=== PATIENT | female | born 1940 | race Caucasian/White ===

== ENCOUNTER 2024-07-25 22:55 | Observation (INO) | payer OTHER ==
[2024-07-25] MEDS: METOCLOPRAMIDE HCL INJECTION 10 MG/2 ML VIAL IVPB ONE (23:46)
[2024-07-25 23:50] LABS: BASO % 0.3 % (0-2.0); HEMATOCRIT 39.8 % (32.4-45.2); HEMOGLOBIN 13.1 GM/dL (10.7-15.3); MCH 29.8 pg (25.7-33.7); MEAN CELL VOLUME 90.2 fl (80-96); MEAN PLT VOLUME 7.8 fl (7.5-11.1); MONO % 4.4 % (3.8-10.2); NEUT % 87.3 % (42.8-82.8); PLATELET COUNT 298 10^3/uL (134-434); RBC 4.42 M/mm3 (3.60-5.2); RDW 15.8 % (11.6-15.6); WHITE BLOOD COUNT 12.5 K/mm3 (4.0-10.0)
[2024-07-26] LABS: POTASSIUM 4.4 mmol/L (3.5-5.1)
[2024-07-26 00:02] LABS: ALBUMIN 3.8 g/dl (3.4-5.0); CALCIUM 9.1 mg/dL (8.5-10.1)
[2024-07-26 00:03] LABS: BLOOD UREA NITROGEN 21.1 mg/dL (7-18); MAGNESIUM 2.1 mg/dL (1.8-2.4)
[2024-07-26 00:06] LABS: CREATININE 1.1 mg/dL (0.55-1.3)
[2024-07-26 00:07] LABS: BILIRUBIN,TOTAL 0.4 mg/dL (0.2-1); TOT PROT 8.2 g/dl (6.4-8.2)
[2024-07-26] MEDS ORDERED: ONDANSETRON 4 MG/2 ML VIAL ONE (01:26)
[2024-07-26] MEDS ORDERED: INSULIN ASPART SLIDING SCALE (NOVOLOG) 1 VIAL SQ ONE ×3 (01:31→08:32)
[2024-07-26] MEDS: SODIUM CHLORIDE 0.9% 500 ML INFUS.BAG IV ONE (01:40)
[2024-07-26] MEDS: INSULIN (NOVOLOG) ASPART 100 UNITS/ML 10ML VIAL SQ ONE (01:40)
[2024-07-26] MEDS: ONDANSETRON 4 MG/2 ML VIAL IVPUSH ONE (01:41)
[2024-07-26] MEDS: SODIUM CHLORIDE FOR INHALATION 3 ML VIAL.NEB IH ONE (01:53)
[2024-07-26] MEDS ORDERED: MECLIZINE HCL 12.5 MG TABLET ONE (04:04)
[2024-07-26] MEDS: MECLIZINE HCL 12.5 MG TABLET PO ONE (04:07)
[2024-07-26] MEDS ORDERED: KCL 10 MEQ IVPB 10 MEQ/100 ML INFUS.BAG IVPB SCH (05:45)
[2024-07-26] MEDS ORDERED: LISINOPRIL 20 MG TABLET ONE (05:51)
[2024-07-26] MEDS: LISINOPRIL 20 MG TABLET PO ONE (06:00)
[2024-07-26] MEDS: MECLIZINE HCL 12.5 MG TABLET PO SCH (06:13)
[2024-07-26] MEDS: SODIUM CHLORIDE 1,000 ML IV SCH (06:50)
[2024-07-26 07:21] LABS: BASO % 0.4 % (0-2.0); HEMATOCRIT 39.2 % (32.4-45.2); HEMOGLOBIN 13.4 GM/dL (10.7-15.3); LYMPH % 8.3 % (8-40); MCH 30.9 pg (25.7-33.7); MCHC 34.1 g/dl (32.0-36.0); MEAN CELL VOLUME 90.6 fl (80-96); MEAN PLT VOLUME 8.5 fl (7.5-11.1); MONO % 4.5 % (3.8-10.2); NEUT % 86.8 % (42.8-82.8); PLATELET COUNT 223 10^3/uL (134-434); RBC 4.32 M/mm3 (3.60-5.2); RDW 15.5 % (11.6-15.6); WHITE BLOOD COUNT 11.5 K/mm3 (4.0-10.0)
[2024-07-26 07:43] LABS: POTASSIUM 4.5 mmol/L (3.5-5.1)
[2024-07-26 07:45] LABS: CALCIUM 8.4 mg/dL (8.5-10.1)
[2024-07-26 07:46] LABS: ALBUMIN 3.5 g/dl (3.4-5.0); MAGNESIUM 2.1 mg/dL (1.8-2.4)
[2024-07-26 07:49] LABS: CREATININE 0.9 mg/dL (0.55-1.3)
[2024-07-26 07:51] LABS: BILIRUBIN,TOTAL 0.4 mg/dL (0.2-1); CHOLESTEROL 203 mg/dL (50-200); LDL CHOLESTEROL (ONLY SJRH) 99 mg/dL (5-100); PHOSPHOROUS 3.2 mg/dL (2.5-4.9); TOT PROT 7.5 g/dl (6.4-8.2)
[2024-07-26 07:53] LABS: HDL CHOLESTEROL 85 mg/dL (40-60)
[2024-07-26 08:09] LABS: PH,URINE 6.5 (5.0-8.0); URINE APPEARANCE CLEAR; URINE BILIRUBIN NEGATIVE (NEGATIVE); URINE COLOR YELLOW; URINE GLUCOSE (UA) 3+ (NEGATIVE); URINE KETONE TRACE (NEGATIVE); URINE LEUK ESTERASE NEGATIVE (NEGATIVE); URINE NITRITE NEGATIVE (NEGATIVE); URINE PROTEIN NEGATIVE (NEGATIVE); URINE UROBILINOGEN 0.2 mg/dL (0.2-1.0)
[2024-07-26] MEDS: INSULIN ASPART SLIDING SCALE (NOVOLOG) 1 VIAL SQ SCH (08:59)
[2024-07-26] MEDS: ENOXAPARIN NA (PORCINE) 40 MG/0.4 ML DISP.SYRIN SQ SCH (11:07)
[2024-07-26 14:46] VITALS: BMI 27.8
[2024-07-26] MEDS: LISINOPRIL 20 MG TABLET PO SCH (22:13)
[2024-07-26] MEDS: INSULIN (LEVEMIR) 100 UNITS/ML UNITS SQ SCH (22:30)
[2024-07-27 07:50] VITALS: RESP 18
[2024-07-27 07:50] LABS: POTASSIUM 4.2 mmol/L (3.5-5.1)
[2024-07-27 07:59] LABS: CALCIUM 8.5 mg/dL (8.5-10.1)
[2024-07-27 08:01] LABS: CREATININE 0.9 mg/dL (0.55-1.3)
[2024-07-27 08:04] LABS: BILIRUBIN,TOTAL 0.6 mg/dL (0.2-1); TOT PROT 6.6 g/dl (6.4-8.2)
[2024-07-27 08:11] LABS: BASO % 0.6 % (0-2.0); EOS % 1.9 % (0-4.5); HEMATOCRIT 36.4 % (32.4-45.2); HEMOGLOBIN 12.1 GM/dL (10.7-15.3); MCHC 33.2 g/dl (32.0-36.0); MEAN CELL VOLUME 90.5 fl (80-96); MEAN PLT VOLUME 8.2 fl (7.5-11.1); MONO % 9.5 % (3.8-10.2); PLATELET COUNT 243 10^3/uL (134-434); RBC 4.03 M/mm3 (3.60-5.2); RDW 16.1 % (11.6-15.6); WHITE BLOOD COUNT 6.8 K/mm3 (4.0-10.0)
[2024-07-27] MEDS: guaiFENesin 200 MG/10 ML 10 ML UNIT-DOSE CUPS PO PRN (11:09)
[2024-07-27 15:56] VITALS: BP 105/87; PULSE 74; TEMP 98.4
== END 2024-07-27 18:14 | disposition home or self-care (01) ==
LOC: JER 22:55 → UNDOADMOB 07-26 03:18 → INTOOBSV 07-26 03:18 → JERBED 07-26 03:18 → J4W 07-26 09:27 → JERBED 07-26 10:59
PROVIDERS: ADMIT Internal Medicine; ATTEND Internal Medicine
PROC: 3E023GC Introduction of Other Therapeutic Substance into Muscle, Percutaneous Approach (ICD-10-PCS; principal; 2024-07-26)
PROC: 3E013VG Introduction of Insulin into Subcutaneous Tissue, Percutaneous Approach (ICD-10-PCS; 2024-07-26)
PROC: 3E0337Z Introduction of Electrolytic and Water Balance Substance into Peripheral Vein, Percutaneous Approach (ICD-10-PCS; 2024-07-26)
DX: J40 Bronchitis, not specified as acute or chronic (principal); E86.1 Hypovolemia; E11.9 Type 2 diabetes mellitus without complications; I10 Essential (primary) hypertension; Z88.0 Allergy status to penicillin; Z88.5 Allergy status to narcotic agent
CPT/HCPCS: 0241U-QW; 36415; 70450-TC; 71045-TC-FY; 71250-TC; 80053; 80061; 81003; 82570; 82962; 83036; 83735; 84100; 84156; 84443; 84484; 85025; 87070; 87205; 93005; 93010; 93306-TC; 96361; 96372; 96374; 96375; 97116-GP; 97162-GP; 99285-25; G0378